=== PATIENT | female | born 1965 | race Caucasian/White ===

== ENCOUNTER 2017-07-14 08:49 | Day surgery (SDC) | payer BC, OTHER ==
[~2017-07-14 08:49] MED LIST: Adderall Xr 1515 MG PO; CITA20 PO; GRALISE1 EACH PO; IBUP800 PO; LAMO100 PO; Norco 5-325 Ta1 EACH PO; TRAZ50 PO
== END 2017-07-14 12:45 | disposition home or self-care (01) ==
LOC: CT 08:49 → PLD 08:49 → CT 10:00
PROVIDERS: Radiology Diagnostic Radiology
PROC: 0BBL3ZX Excision of Left Lung, Percutaneous Approach, Diagnostic (ICD-10-PCS; principal; 2017-07-14 11:00)
DX: C43.59 Malignant melanoma of other part of trunk (principal); C78.02 Secondary malignant neoplasm of left lung; C78.01 Secondary malignant neoplasm of right lung; R51 Headache; R11.2 Nausea with vomiting, unspecified; H53.9 Unspecified visual disturbance
CPT/HCPCS: 32405; 77012; 88305; 88341; 88342

== ENCOUNTER → 2017-10-29 | Outpatient (CLI) | payer OTHER | END | disposition home or self-care (01) | LOC: PLD 11:22 → LAB SHORT 11:22 | DX: D23.12 Other benign neoplasm of skin of left eyelid, including canthus (principal); L82.1 Other seborrheic keratosis; L57.0 Actinic keratosis | CPT/HCPCS: 88305 ==

== ENCOUNTER 2018-02-15 16:11 | Emergency (ER) | payer OTHER ==
[~2018-02-15] VITALS: Ht 170.2 cm; Wt 108.9 kg
[~2018-02-15 16:11] MED LIST changes: +ALBU3IS INH; +AMLO10 PO; +BUPR150ER PO; +DEXA4 PO; +GUAI600T33 PO; +LEVO750 PO; +LOSA50 PO; +MEKINIST2 MG PO; +MONT10T PO; +Omeprazole20 M1 PO; +Pulmicort0.5 MG/2 M INH; +TYLECOD3 PO; +XARELTO20 MG PO; +ZELBORAF240 MG PO
[2018-02-15] MEDS ORDERED: HYDRA50 PO (16:32)
[2018-02-15] MEDS ORDERED: POTA8 PO (16:33)
[2018-02-15 16:46] LABS: BASOPHILS ABSOLUTE AUTO 0.02 K/mm3 (0.00-0.23); BASOPHILS PERCENT AUTO 0 % (0-2); EOSINOPHILS ABSOLUTE AUTO 0.19 K/mm3 (0.00-0.68); EOSINOPHILS PERCENT AUTO 3 % (0-6); Hematocrit 35.1 % (33.0-51.0); Hemoglobin 11.6 g/dL (11.5-16.0); IMMATURE GRAN ABSOLUTE AUTO 0.01 K/mm3 (0.00-0.10); IMMATURE GRAN PERCENT AUTO 0 % (0-1); LYMPHOCYTES ABSOLUTE AUTO 1.42 K/mm3 (0.84-5.20); LYMPHOCYTES PERCENT AUTO 25 % (21-46); MONOCYTES ABSOLUTE AUTO 0.59 K/mm3 (0.16-1.47); MONOCYTES PERCENT AUTO 10 % (4-13); Mean Corpuscular HGB 30.6 pg (26.0-34.0); Mean Corpuscular Volume 93 fL (80-100); Mean Platelet Volume 9.6 fL (9.1-12.4); NEUTROPHILS ABSOLUTE AUTO 3.47 K/mm3 (1.96-9.15); NEUTROPHILS PERCENT AUTO 61 % (41-73); Platelet Count 240 K/mm3 (150-400); RDW Coefficient Variation 15.5 % (11.7-14.2); RDW Standard Deviation 53.1 fL (35.1-46.3); Red Blood Cell Count 3.79 M/mm3 (3.80-5.20)
[2018-02-15 16:58] LABS: Source, Urine Clean Catch
[2018-02-15 17:00] LABS: Albumin/Globulin Ratio 0.9 (0.8-1.8); Bilirubin, Total 0.6 mg/dL (0.1-1.0); Bun/Creatinine Ratio 7.8 (12.0-20.0); Calcium, Blood 9.2 mg/dL (8.5-10.1); Creatinine, Blood 1.03 mg/dL (0.40-1.00); Globulin, Blood 3.4 g/dL (2.2-4.0); Potassium, Blood 3.4 mmol/L (3.5-5.5); Total Protein, Blood 6.4 g/dL (6.4-8.2)
[2018-02-15 17:04] LABS: Appearance, Urine Clear (Clear); Blood, Urine 2+ (Neg); Color, Urine Yellow (P-Yellow); Glucose Qualitative, Urine Neg (Neg); Ketones, Urine 1+ (Neg); Leukocyte Esterase, Urine 1+ (Neg); Nitrite, Urine Neg (Neg); Protein, Urine 3+ (Neg); Specific Gravity, Urine 1.015 (1.003-1.022); Urobilinogen, Urine 2+ (Normal)
[2018-02-15 17:10] LABS: Bilirubin, Urine 1+ (Neg)
[2018-02-15 17:11] LABS: Granular Casts 0-2 /lpf (0)
[2018-02-15 17:12] LABS: Calcium Oxalate Crystals Mod /hpf; Mucus Mod (0-Heavy); Squamous Epithelial Cells Few /hpf (Few)
[2018-02-15 17:13] LABS: Bacteria Mod /hpf
[2018-02-15] MEDS ORDERED: FURO20 PO (18:06)
[2018-02-15] MEDS ORDERED: POTCHL20ER PO (18:06)
== END 2018-02-15 18:29 | disposition home or self-care (01) ==
LOC: ER 16:11
PROVIDERS: Emergency Medicine
DX: J32.9 Chronic sinusitis, unspecified (principal); R60.0 Localized edema; R21 Rash and other nonspecific skin eruption; E87.6 Hypokalemia; H91.90 Unspecified hearing loss, unspecified ear; I10 Essential (primary) hypertension; Z88.1 Allergy status to other antibiotic agents; Z88.8 Allergy status to other drugs, medicaments and biological substances; Z79.899 Other long term (current) drug therapy; Z79.51 Long term (current) use of inhaled steroids
CPT/HCPCS: 36415; 71046; 80053; 81001; 85025; 87086; 99283-25